=== PATIENT | female | born 1955 | race Asian ===

== ENCOUNTER 2018-08-25 07:40 | Day surgery (SDC) | payer OTHER ==
[2018-08-25] MEDS ORDERED: FENTAnyl 50 MCG/ML VIAL (09:32)
[2018-08-25] MEDS ORDERED: MIDAZOLAM 1 MG/ML 2 ML INJ (09:32)
== END 2018-08-25 10:00 | disposition home or self-care (01) ==
LOC: GIL 07:40
DX: Z12.11 Encounter for screening for malignant neoplasm of colon (principal); D12.5 Benign neoplasm of sigmoid colon; I10 Essential (primary) hypertension
CPT/HCPCS: 45380; 88305